=== PATIENT | male | born 1965 | race Caucasian/White ===

== ENCOUNTER → 2024-06-25 12:38 | Outpatient (REF) | payer OTHER, SELFPAY | LOC: HWRAD 12:38 | PROVIDERS: ATTENDING PHYSICIAN Physician Assistant; FAMILY PHYSICIAN Internal Medicine | DX: J32.8 Other chronic sinusitis (principal) | CPT/HCPCS: 70486 ==

== ENCOUNTER → 2024-07-20 11:22 | Outpatient (REF) | payer OTHER, SELFPAY | LOC: RCS 11:22 | PROVIDERS: ATTENDING PHYSICIAN Otolaryngology; FAMILY PHYSICIAN Internal Medicine | DX: J32.9 Chronic sinusitis, unspecified (principal); Z01.810 Encounter for preprocedural cardiovascular examination | CPT/HCPCS: 93005 ==

== ENCOUNTER → 2024-08-22 15:57 | Outpatient (REF) | payer OTHER, SELFPAY | LOC: CLAB 15:57 | PROVIDERS: ATTENDING PHYSICIAN Otolaryngology | DX: J34.2 Deviated nasal septum (principal); J34.3 Hypertrophy of nasal turbinates | CPT/HCPCS: 88304; 88311 ==